=== PATIENT | female | born 1930 | race Caucasian/White ===

== ENCOUNTER 2017-04-24 10:12 | Inpatient (IN) | payer MEDICARE ==
[~2017-04-24] VITALS: Ht 152.4 cm; Wt 65.0 kg
[~2017-04-24 10:12] MED LIST: BUME1TAB PO; CALCCHW25 PO; DUONI NEB; HYDR-3533 PO; LEVO25TA36 PO; LOSA50 PO; METO50TA PO
[2017-04-24 10:28] VITALS: BP 162/73; PULSE 69; RESP 17; TEMP 97.5; O2SAT 97
[2017-04-24 12:11] LABS: AUTOMATED NEUTROPHIL # 4.3 TH/MM3 (1.8-7.7); BASOPHIL # 0.1 TH/MM3 (0-0.2); EOSINOPHIL # 0.1 TH/MM3 (0-0.4); EOSINOPHIL % 1.3 % (0.0-4.0); HEMATOCRIT 37.5 % (35.0-46.0); LYMPH % 39.1 % (9.0-44.0); LYMPHOCYTE # 3.4 TH/MM3 (1.0-4.8); MEAN CELL VOLUME 89.7 FL (80.0-100.0); MEAN CORPUSCULAR HGB CONC 34.6 % (32.0-36.0); MEAN PLATELET VOLUME 9.3 FL (7.0-11.0); MONO % 9.2 % (0.0-8.0); MONOCYTE # 0.8 TH/MM3 (0-0.9); NEUT % 49.4 % (16.0-70.0); PLATELET COUNT 177 TH/MM3 (150-450); RED BLOOD COUNT 4.18 MIL/MM3 (4.00-5.30); RED CELL DISTRIBUTION WIDTH 13.9 % (11.6-17.2); WHITE BLOOD COUNT 8.7 TH/MM3 (4.0-11.0)
[2017-04-24] MEDS ORDERED: LEVO25TA4 PO (12:16)
[2017-04-24] MEDS ORDERED: METO50TA PO (12:16)
[2017-04-24 12:57] VITALS: BP 156/67; PULSE 76; RESP 15; O2SAT 99
[2017-04-24 13:01] LABS: ALT (GPT) 15 U/L (10-53)
[2017-04-24 13:04] LABS: BACTERIA, URINE OCC /hpf; BILIRUBIN, URINE NEG (NEG); BLOOD, URINE NEG (NEG); GLUCOSE,URINE NEG (NEG); KETONE, URINE NEG (NEG); NITRITE,URINE NEG (NEG); SQUAMOUS EPITHELIAL CELL URINE <1 /hpf (0-5); URINE COLOR YELLOW (YELLW/STRAW); URINE LEUKOCYTE ESTERASE MOD (NEG); WHITE BLOOD CELL CLUMPS RARE
[2017-04-24 13:05] LABS: ALKALINE PHOSPHATASE 55 U/L (45-117); TOTAL BILIRUBIN ADULT 0.5 MG/DL (0.2-1.0); TOTAL PROTEIN 6.8 GM/DL (6.4-8.2)
[2017-04-24 13:06] LABS: ALBUMIN 3.8 GM/DL (3.4-5.0); AST (GOT) 18 U/L (15-37); BICARBONATE 24.5 MEQ/L (21.0-32.0); BLOOD UREA NITROGEN 19 MG/DL (7-18); CHLORIDE 104 MEQ/L (98-107); CREATININE 0.89 MG/DL (0.50-1.00); GLOMERULAR FILTRATION RATE 60 ML/MIN (>89); GLUCOSE,RANDOM 94 MG/DL (74-106); SODIUM (NA) 138 MEQ/L (136-145)
--- NOTE | 2017-04-24 14:31 | RADRPT ---
EXAM DATE/TIME: 04/24/2017 13:58 [place] COMPARISON: CT BRAIN W/O CONTRAST, April 08, 2015, 11:50. INDICATIONS : Altered mental status. RADIATION DOSE: 35.03 CTDIvol (mGy) MEDICAL HISTORY : Cerebrovascular disease. Dementia. Seizures.Cardiac, Hypertension, COPD. SURGICAL HISTORY : None. ENCOUNTER: Initial ACUITY: 1 day PAIN SCALE: 0/10 LOCATION: cranial TECHNIQUE: Multiple contiguous axial images were obtained of the head. Using automated exposure control and adj ustment of the mA and/or kV according to patient size, radiation dose was kept as low as reasonably a chievable to obtain optimal diagnostic quality images. DICOM format image data is available electro nically for review and comparison. FINDINGS: CEREBRUM: R. diffuse volume loss. Moderate periventricular white matter hypodensities. Ventricles are stable in normal given degree of atrophy. No evidence of midline shift, mass lesion, hemorrhage or acute infa rction. No extra-axial fluid collections are seen. POSTERIOR FOSSA: The cerebellum and brainstem are intact. The 4th ventricle is midline. The cerebellopontine angle i s unremarkable. EXTRACRANIAL: The visualized portion of the orbits is intact. SKULL: The calvaria is intact. No evidence of skull fracture. CONCLUSION: 1. 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 2. No acute intracranial abnormality. Norman Duarte MD on April 24, 2017 at 14:28 Board Certified Radiologist. This report was verified electronically.
--- NOTE | 2017-04-24 15:08 | PD ---
HPI Chief Complaint: Psychiatric Symptoms Time Seen by Provider: 11:58 Travel History International Travel<30 days: No Contact w/Intl Traveler<30days: No Traveled to known affect area: No History of Present Illness HPI Is an 86-year-old woman has had progressive functional difficulties over the past 2 years. Family states that about 4 years ago they had to move then. For the past 2 years she has been completely dependent in her ADLs including toileting feeding and bathing. Over the past year or so she has gotten progressively worse over the past month or so she has had progressive worsening mental status changes, is confused most of the time. Over the past week or so she has become progressively more violent confused and dangerous. She has been sneaking out of the house without close on, was found in the road by neighbors, and has been aggressive and confused when confronted. She spoke with her primary physician's office today, recommend to come to the emergency department for a "psychiatric evaluation". She is currently not on any medications for behavior or dementia. Some recent falls but they do not believe that she is hit her head. No other recent illness or injury. History Past Medical History Narrative Medical Dementia Menopausal: Yes Social History Alcohol Use: Yes (occ) Tobacco Use: No Allergies-Medications (Allergen,Severity, Reaction): Coded Allergies: No Known Allergies (Verified Adverse Reaction, Unknown, 04/24/17) Reported Meds & Prescriptions Reported Meds & Active Scripts Active Reported Levothyroxine (Levothyroxine Sodium) 25 Mcg Tab 25 Mcg PO DAILY Metoprolol Tartrate 50 Mg Tab 50 Mg PO BID Review of Systems ROS Limitations: Clinical Condition Physical Exam Narrative GENERAL: Well-appearing elderly 86-year-old woman, no acute distress. SKIN: Focused skin assessment warm/dry. HEAD: Atraumatic. Normocephalic. EYES: Pupils equal and round. No scleral icterus. No injection or drainage. ENT: No nasal bleeding or discharge. Mucous membranes pink and moist. NECK: Trachea midline. No JVD. CARDIOVASCULAR: Regular rate and rhythm. No murmur appreciated. RESPIRATORY: No accessory muscle use. Clear to auscultation. Breath sounds equal bilaterally. GASTROINTESTINAL: Abdomen soft, non-tender, nondistended. Hepatic and splenic margins not palpable. MUSCULOSKELETAL: No obvious deformities. No clubbing. No cyanosis. No edema. NEUROLOGICAL: Awake and alert. No obvious cranial nerve deficits. Motor grossly within normal limits. Normal speech. PSYCHIATRIC: Pleasantly confused. Unable to answer most questions. Data Data Last Documented VS Vital Signs Date Time Temp Pulse Resp B/P (MAP) Pulse Ox O2 Delivery O2 Flow Rate FiO2 04/24/17 12:57 76 15 156/67 (96) 99 04/24/17 10:28 97.5 Orders Orders Complete Blood Count With Diff (04/24/17 11:09) Comprehensive Metabolic Panel (04/24/17 11:09) Urinalysis - C+S If Indicated (04/24/17 11:09) Psych Screen (04/24/17 11:09) Drug Screen, Random Urine (04/24/17 11:09) Cath For Specimen (04/24/17 12:14) Ct Brain W/O Iv Contrast(Rout) (04/24/17 ) Urine Culture (04/24/17 12:34) Labs Laboratory Tests Test 04/24/17 11:23 04/24/17 12:34 White Blood Count 8.7 TH/MM3 Red Blood Count 4.18 MIL/MM3 Hemoglobin 13.0 GM/DL Hematocrit 37.5 % Mean Corpuscular Volume 89.7 FL Mean Corpuscular Hemoglobin 31.0 PG Mean Corpuscular Hemoglobin Concent 34.6 % Red Cell Distribution Width 13.9 % Platelet Count 177 TH/MM3 Mean Platelet Volume 9.3 FL Neutrophils (%) (Auto) 49.4 % Lymphocytes (%) (Auto) 39.1 % Monocytes (%) (Auto) 9.2 % Eosinophils (%) (Auto) 1.3 % Basophils (%) (Auto) 1.0 % Neutrophils # (Auto) 4.3 TH/MM3 Lymphocytes # (Auto) 3.4 TH/MM3 Monocytes # (Auto) 0.8 TH/MM3 Eosinophils # (Auto) 0.1 TH/MM3 Basophils # (Auto) 0.1 TH/MM3 CBC Comment DIFF FINAL Differential Comment Blood Urea Nitrogen 19 MG/DL Creatinine 0.89 MG/DL Random Glucose 94 MG/DL Total Protein 6.8 GM/DL Albumin 3.8 GM/DL Calcium Level 9.0 MG/DL Alkaline Phosphatase 55 U/L Aspartate Amino Transf (AST/SGOT) 18 U/L Alanine Aminotransferase (ALT/SGPT) 15 U/L Total Bilirubin 0.5 MG/DL Sodium Level 138 MEQ/L Potassium Level 3.9 MEQ/L Chloride Level 104 MEQ/L Carbon Dioxide Level 24.5 MEQ/L Anion Gap 10 MEQ/L Estimat Glomerular Filtration Rate 60 ML/MIN Urine Color YELLOW Urine Turbidity CLEAR Urine pH 5.0 Urine Specific [place] 1.022 Urine Protein NEG mg/dL Urine Glucose (UA) NEG mg/dL Urine Ketones NEG mg/dL Urine Occult Blood NEG Urine Nitrite NEG Urine Bilirubin NEG Urine Urobilinogen LESS THAN 2.0 MG/DL Urine Leukocyte Esterase MOD Urine RBC 1 /hpf Urine WBC 5 /hpf Urine WBC Clumps RARE Urine Squamous Epithelial Cells <1 /hpf Urine Bacteria OCC /hpf Microscopic Urinalysis Comment CULTURE INDICATED Urine Opiates Screen NEG Urine Barbiturates Screen NEG Urine Amphetamines Screen NEG Urine Benzodiazepines Screen NEG Urine Cocaine Screen NEG Urine Cannabinoids Screen NEG MDM Medical Decision Making Medical Screen Exam Complete: Yes Emergency Medical Condition: Yes Interpretation(s) LABS: CBC is unremarkable CMP is unremarkable UA is unremarkable Urine drug screen is negative Head CT: Senescent changes with moderate periventricular small vessel ischemic white matter demyelination. No acute intracranial abnormality. Differential Diagnosis Dementia, infection, delirium, other Narrative Course Medical decision making INITIAL pleasant 78-year-old woman presents emergency department with worsening confusion and danger to herself at home. This seems related to progressive worsening dementia. She is not on any medications. She will do at home with her daughter. Sent by her primary physician for psychiatric evaluation. Jorje Delgado MD Apr 24, 2017 15:08
[2017-04-24 18:58] VITALS: RESP 20
[2017-04-24 19:45] VITALS: BP 139/64; PULSE 83; RESP 18; TEMP 97.5
[2017-04-24] MEDS ORDERED: diphenhydrAMINE HCL 50 MG CAP PO PRN (20:45)
[2017-04-24] MEDS ORDERED: ACETAMINOPHEN 325 MG TAB PO PRN (20:45)
[2017-04-24] MEDS ORDERED: diphenhydrAMINE HCL 50 MG CAP - HS PRN PO (20:45)
[2017-04-24] MEDS ORDERED: diphenhydrAMINE HCL 50 MG/ML VIAL - HS PRN IM (20:45)
[2017-04-24] MEDS ORDERED: MAGNESIUM HYDROXIDE SUSP 30 ML CUP PO PRN (20:45)
[2017-04-24] MEDS ORDERED: diphenhydrAMINE HCL 50 MG/ML VIAL IM PRN (20:45)
[2017-04-24] MEDS ORDERED: ALUMINUM/MAGNESIUM/SIMETH 30 ML CUP PO PRN (20:45)
[2017-04-24] MEDS ORDERED: REMOVE OLD NICOTINE PATCH T-DERMAL SCH (21:00)
[2017-04-24] MEDS: METOPROLOL TARTRATE 50 MG TAB PO SCH (21:26)
[2017-04-25 04:42] VITALS: BP 126/58; PULSE 70; RESP 16; TEMP 98; O2SAT 97
[2017-04-25] MEDS: LEVOTHYROXINE SODIUM 25 MCG TAB PO SCH (06:36)
[2017-04-25 07:41] LABS: BICARBONATE 26.3 MEQ/L (21.0-32.0); BLOOD UREA NITROGEN 18 MG/DL (7-18); CALCIUM 9.4 MG/DL (8.5-10.1); CHLORIDE 104 MEQ/L (98-107); CREATININE 0.83 MG/DL (0.50-1.00); GLOMERULAR FILTRATION RATE 65 ML/MIN (>89); GLUCOSE,RANDOM 87 MG/DL (74-106); SODIUM (NA) 140 MEQ/L (136-145)
[2017-04-25 07:42] LABS: CHOLESTEROL 170 MG/DL (120-200); TRIGLYCERIDES 90 MG/DL (42-150)
[2017-04-25 07:45] LABS: CHOLESTEROL/ HDL RATIO 2.33 RATIO; HDL CHOLESTEROL 72.8 MG/DL (40.0-60.0); LDL CHOLESTEROL 79 MG/DL (0-99)
[2017-04-25] MEDS: METOPROLOL TARTRATE 50 MG TAB PO SCH ×2 (08:52→20:48)
[2017-04-25] MEDS ORDERED: NICOTINE 21 MG/24 HR PATCH T-DERMAL SCH (09:00)
[2017-04-25] MEDS ORDERED: ASPI-516 CHEW (09:13)
[2017-04-25] MEDS ORDERED: LOSA25TA PO (09:13)
[2017-04-25] MEDS ORDERED: SYMB160A INH (09:13)
[2017-04-25] MEDS ORDERED: CALC1TAB87 PO (09:13)
--- NOTE | 2017-04-25 09:18 | PD.CONS ---
HPI Service [facility] Consult Requested By Psychiatric team Reason for Consult Assist in medical management of chronic medical conditions including cardiac and thyroid as well as UA results Primary Care Physician Mariah Guillen MD Diagnoses: History of Present Illness This is an 86-year-old female patient with a past medical history which includes anemia with B12 deficiency, DVT, CAD, CHF, COPD, chronic kidney disease stage III, hyperlipidemia, hypertension, hypothyroidism, lumbar spondylosis, lumbar stenosis, memory loss and osteoarthritis of lower extremities. Patient is currently confused and unable to give reliable history therefore information gathered from prior charting and review of outpatient records. It appears that patient has had progressive functional difficulties over the past 2 years and for the past 2 years she has been completely dependent in her ADLs including toileting feeding and bathing. Over the past year or so she has gotten progressively worse over the past month or so she has had progressive worsening mental status changes, is confused most of the time. Over the past week or so she has become progressively more violent confused and dangerous. Patient's PCP recommend family bring patient to the emergency department for a "psychiatric evaluation". She is currently not on any medications for behavior or dementia. Patient does appear confused but offers no specific complaints. Past Family Social History Past Medical History anemia with B12 deficiency, DVT, CAD, CHF, COPD, chronic kidney disease stage III, hyperlipidemia, hypertension, hypothyroidism, lumbar spondylosis, lumbar stenosis, memory loss and osteoarthritis of lower extremities. Past Surgical History coronary artery bypass graft, cataract surgery, colonoscopy, EGD, knee surgery, decompression medial nerve for carpal tunnel Reported Medications Levothyroxine (Levothyroxine Sodium) 25 Mcg Tab 25 Mcg PO DAILY Metoprolol Tartrate 50 Mg Tab 50 Mg PO BID Aspirin 81 mg daily Calcium 600 with vitamin D 1 tablet daily Symbicort nebulizer twice a day Levothyroxine 25 g daily Losartan 25 mg 1 tablet daily Allergies: Coded Allergies: atorvastatin (Verified Allergy, Unknown, 04/24/17) tiotropium (Verified Allergy, Unknown, 04/24/17) Family History Heart disease, depression, thyroid disorder Social History No report of EtOH use or illicit drug use Former smoker unable to tell us when she quit Physical Exam Vital Signs Vital Signs Date Time Temp Pulse Resp B/P (MAP) Pulse Ox O2 Delivery O2 Flow Rate FiO2 04/25/17 04:42 98.0 70 16 126/58 (80) 97 04/24/17 19:45 97.5 83 18 139/64 (89) 04/24/17 19:40 04/24/17 18:58 20 04/24/17 12:57 76 15 156/67 (96) 99 04/24/17 10:28 97.5 69 17 162/73 (102) 97 Physical Exam GENERAL: This is a well-nourished, well-developed patient, confused unable to give medical history SKIN: Generalized thinning of skin HEAD: Atraumatic. Normocephalic. No temporal or scalp tenderness. EYES: Extraocular motions intact. No scleral icterus. No injection or drainage. CARDIOVASCULAR: Regular rate and rhythm RESPIRATORY: Clear to auscultation. Breath sounds equal bilaterally. GASTROINTESTINAL: Abdomen soft, non-tender, nondistended. MUSCULOSKELETAL: Extremities without clubbing, cyanosis, or edema. No joint tenderness, effusion, or edema noted. No calf tenderness. Negative Homans sign bilaterally. NEUROLOGICAL: Patient is awake but confused. Motor and sensory grossly within normal limits. 4-5 out of 5 muscle strength in all muscle groups. Laboratory Laboratory Tests Test 04/24/17 11:23 04/24/17 12:34 04/25/17 07:04 White Blood Count 8.7 Red Blood Count 4.18 Hemoglobin 13.0 Hematocrit 37.5 Mean Corpuscular Volume 89.7 Mean Corpuscular Hemoglobin 31.0 Mean Corpuscular Hemoglobin Concent 34.6 Red Cell Distribution Width 13.9 Platelet Count 177 Mean Platelet Volume 9.3 Neutrophils (%) (Auto) 49.4 Lymphocytes (%) (Auto) 39.1 Monocytes (%) (Auto) 9.2 Eosinophils (%) (Auto) 1.3 Basophils (%) (Auto) 1.0 Neutrophils # (Auto) 4.3 Lymphocytes # (Auto) 3.4 Monocytes # (Auto) 0.8 Eosinophils # (Auto) 0.1 Basophils # (Auto) 0.1 CBC Comment DIFF FINAL Differential Comment Blood Urea Nitrogen 19 18 Creatinine 0.89 0.83 Random Glucose 94 87 Total Protein 6.8 Albumin 3.8 Calcium Level 9.0 9.4 Alkaline Phosphatase 55 Aspartate Amino Transf (AST/SGOT) 18 Alanine Aminotransferase (ALT/SGPT) 15 Total Bilirubin 0.5 Sodium Level 138 140 Potassium Level 3.9 3.8 Chloride Level 104 104 Carbon Dioxide Level 24.5 26.3 Anion Gap 10 10 Estimat Glomerular Filtration Rate 60 65 Urine Color YELLOW Urine Turbidity CLEAR Urine pH 5.0 Urine Specific [place] 1.022 Urine Protein NEG Urine Glucose (UA) NEG Urine Ketones NEG Urine Occult Blood NEG Urine Nitrite NEG Urine Bilirubin NEG Urine Urobilinogen LESS THAN 2.0 Urine Leukocyte Esterase MOD Urine RBC 1 Urine WBC 5 Urine WBC Clumps RARE Urine Squamous Epithelial Cells <1 Urine Bacteria OCC Microscopic Urinalysis Comment CULTURE INDICATED Urine Opiates Screen NEG Urine Barbiturates Screen NEG Urine Amphetamines Screen NEG Urine Benzodiazepines Screen NEG Urine Cocaine Screen NEG Urine Cannabinoids Screen NEG Triglycerides Level 90 Cholesterol Level 170 LDL Cholesterol 79 HDL Cholesterol 72.8 Cholesterol/HDL Ratio 2.33 Date/Time Source Procedure Growth Status 04/24/17 12:34 Urine Random Urine Urine Culture Pending Received Result Diagram: 04/24/17 1123 04/25/17 0704 Imaging Last Impressions Head CT 04/24/17 0000 Signed Impressions: Service Date/Time: Saturday, April 24, 2017 13:58 - CONCLUSION: 1. 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 2. No acute intracranial abnormality. Norman Duarte MD Assessment and Plan Problem List: (1) Confusion ICD Codes: R41.0 - Disorientation, unspecified Plan: It appears that patient had had meoery and functional difficulties worsening over the past two years with a more rapid progression over the last 1 year and worsening over the last 1 month. Then over the past week or so she has become progressively more violent confused and dangerous. This appears to be worsening dementia. - R/O underlining medical causes metabolic check Vit B12, TSH, free T4, Folate, ammonia, RPR - UA reviewed neg protein, neg nitrates, Moderate Leukocyte Esterase, rare WBC clumps, occasional bacteria - urine culture pending - Toxicology neg - CBC and BMP unremarkable - CT head Senescent changes with moderate periventricular small vessel ischemic white matter demyelination. No acute intracranial abnormality (2) Possible urinary tract infection ICD Codes: R39.89 - Other symptoms and signs involving the genitourinary system Plan: - UA reviewed neg protein, neg nitrates, Moderate Leukocyte Esterase, rare WBC clumps, occasional bacteria - urine culture pending (3) Hypertension ICD Codes: I10 - Essential (primary) hypertension Status: Acute Plan: Will continue patient's home losartan 25mg PO daily and metoprolol 25 mg PO daily (4) CHF (congestive heart failure) ICD Codes: I50.9 - Congestive heart failure Status: Acute Plan: Will continue patient's home losartan 25mg PO daily, metoprolol 25 mg PO daily (5) CAD (coronary artery disease) ICD Codes: I25.10 - Atherosclerosis of coronary artery Status: Acute Plan: Will continue patient's home losartan 25mg PO daily, metoprolol 25 mg PO daily and aspirin 81 mg PO daily (6) COPD exacerbation ICD Codes: J44.1 - Chronic obstructive pulmonary disease with (acute) exacerbation Status: Acute Plan: continue patient's home Symbicort Albuterol inhaler as needed for AOB (7) Hypothyroidism ICD Codes: E03.9 - Hypothyroidism, unspecified Status: Acute Plan: Continue patient's home levothyroxine 25 mcg PO daily check TSH and free T4 Assessment and Plan Patient examined. Assessment and plan formulated with Zayra Jason PA-C. I agree with the above. Pt with h/o multiple chronic medical issues, but no acute medical issues. Urine Cx shows NOT growth at 24 hours. Pt voices NO acute medical complaints. Medical team will be available prn. Zayra Jason Apr 25, 2017 09:18 Damian Garcias DO Apr 25, 2017 19:53
[2017-04-25] MEDS ORDERED: ALBUTEROL SULFATE 90 MCG/ACT HFA 8 GM INHALER INH PRN (09:30)
--- NOTE | 2017-04-25 11:48 | HHI.HP ---
Provisional Diagnosis Admission Date Apr 24, 2017 at 17:14 [place]. Dimension other diseases with behavior disturbances, Alzheimer's disease late onset Certification of Person's Competence To Provide Express and Informed Consent I have personally examined Donna Lomas , a person being served at [facility] on, Apr 25, 2017 11:28. Express and informed consent means consent voluntarily given in writing, by a competent person, after sufficient explanation and disclosure of the subject matter involved to enable the person to make a knowing and willful decision without any element of force, fraud, deceit, duress, or other form of constraint or coercion. This person is 18 years of age or older, is not now known to be incompetent to consent to treatment with a guardian advocate, and does not have a health care surrogate or proxy currently making medical treatment decisions. I have found this person to be one of the following: [] Competent to provide express and informed consent, as defined above, for voluntary admission to this facility and is competent to provide express and informed consent for treatment. He/she has the consistent capacity to make well reasoned, willful, and knowing decisions concerning his or her medical or mental health treatment. The person fully and consistently understands the purpose of the admission for examination/placement and is fully capable of personally exercising all rights assured under [place]xxx] Incompetent to provide express and informed consent to voluntary admission , and this is incompetent to provide express and informed consent to treatment. The person must be transferred to involuntary status and a petition for a guardian advocate filed with the Circuit Court. [] Refusing to provide express and informed consent to voluntary admission but is competent to provide express and informed consent for treatment. The person must be discharged or transferred to involuntary status. Form shall be completed within 24 hours of a person's arrival at the receiving facility and filed in the clinical record of each person: 1. Admitted on a voluntary basis 2. Permitted to provide express and informed consent to his/her own treatment 3. Allowed to transfer from involuntary to voluntary status 4. Prior to permitting a person to consent to his or her own treatment after having been previously found incompetent to consent to treatment. History of Present Illness Capacity: Lacks Capacity Psych Chief Complaint: patient with dementia with increased aggressiveness towards family HPI She is an 86-year-old white female who comes here under Carias act signed by Dr. Pickard they'll [facility] emergency department dated 04/24/17 at 1604 p.m. that document reviewed basically stating patient lacks alertness unsafe at home wanders out of house. Patient seen screened in ED urine toxicology negative. At the present time patient sitting quietly in day room. She is an alert elderly female who appears her stated age. She is calm pleasant with us is diffusely confused to date time location and situation. She gets a little bit irritable when questioned into much detail related to her living situation and with whom she lives. She denies ever seeing a psychiatrist in the past. She denies suicidality homicidality voices or visions. She states she rarely ever drinks. And has never used marijuana. At the present time patient meets criteria for involuntary psychiatric hospitalization under the Carias act I'll do first opinion request second opinion. Therefore she does not have capacity thus will ask for healthcare surrogate and guardian advocate we will have hospitalist consult will also have PT and OT consult will us. We need to meet with patient's family to determine placement issues. We do need for further observe patient to monitor behaviors into this evening Review of Systems ROS Limitations: Altered Mental Status Past Psych History Psychological trauma history Patient denies Violence risk - others (6 mos) Patient is been aggressive towards family members Violence risk - self (6 mos) Patient denies Substance Abuse History Drugs/Alcohol past 12 months Patient denies Past Family Social History Coded Allergies: atorvastatin (Verified Allergy, Unknown, 04/24/17) tiotropium (Verified Allergy, Unknown, 04/24/17) Reported Medications Calcium Carbonate-Cholecalciferol (Calcium 600 with Vitamin D) 600-400 mg-Unit Tab, 1 TAB PO DAILY for Calcium Supplement, TAB 0 Refills 04/25/17 Aspirin (Aspirin) 81 Mg Chew, 81 MG CHEW DAILY, TAB 0 Refills 04/25/17 Budesonide-Formoterol Inh (Symbicort Inh) 160-4.5 Mcg/Act Aero, 1 PUFF INH Q12HR , #1 INHALER 0 Refills 04/25/17 Losartan (Losartan) 25 Mg Tab, 25 MG PO DAILY for Blood Pressure Management, # 30 TAB 0 Refills 04/25/17 Levothyroxine (Levothyroxine) 25 Mcg Tab, 25 MCG PO DAILY for Thyroid, #30 TAB 0 Refills 04/24/17 Metoprolol Tartrate (Metoprolol Tartrate) 50 Mg Tab, 25 MG PO BID, #60 TAB 0 Refills 04/24/17 Current Medications Medications (Trade) Dose Ordered Sig/Octavia Route Start Time Stop Time Status Last Admin (Atarax) 50 mg Q6H PRN PO 04/24/17 20:45 (Benadryl) 50 mg Q6H PRN PO 04/24/17 20:45 (Benadryl Inj) 50 mg Q6H PRN IM 04/24/17 20:45 (Benadryl) 50 mg HS PRN PO 04/24/17 20:45 (Benadryl Inj) 50 mg HS PRN IM 04/24/17 20:45 (Tylenol) 650 mg Q4H PRN PO 04/24/17 20:45 (Milk Of Magnesia Liq) 30 ml DAILY PRN PO 04/24/17 20:45 (Mag-Al Plus Susp Liq) 30 ml Q6H PRN PO 04/24/17 20:45 (Habitrol 21 Mg Patch.24 Hr) 1 patch DAILY T-DERMAL 04/25/17 09:00 Miscellaneous Information 1 HS T-DERMAL 04/24/17 21:00 (Synthroid) 25 mcg DAILY@0600 PO 04/25/17 06:00 04/25/17 06:36 (Aspirin Chew) 81 mg DAILY CHEW 04/26/17 09:00 (Symbicort 160-4.5 Mcg Inh) 1 puff Q12HR INH 04/25/17 21:00 (Cozaar) 25 mg DAILY PO 04/26/17 09:00 (Lopressor) 25 mg BID PO 04/25/17 21:00 (Proair Hfa Inh) 2 puff Q4H PRN INH 04/25/17 09:30 Family Psych History Patient denies Social History Patient confused about living situation Patient's Strengths (min. 2) Patient verbal able to access healthcare Physical Exam Patient medically cleared through he see exam reviewed and agreed with. Patient sitting quietly in Karie chair in day room she is in no acute distress, she is in no respiratory distress, no complaints with abdominal pain patient sitting in Karie chair unable to determine gait though she moves upper extremities without difficulty Vital Signs Vital Signs Date Time Temp Pulse Resp B/P (MAP) Pulse Ox O2 Delivery O2 Flow Rate FiO2 04/25/17 04:42 98.0 70 16 126/58 (80) 97 Lab Results Test 04/24/17 12:34 04/25/17 07:04 04/25/17 11:07 04/25/17 11:09 Urine Color YELLOW Urine Turbidity CLEAR Urine pH 5.0 Urine Specific [place] 1.022 Urine Protein NEG mg/dL Urine Glucose (UA) NEG mg/dL Urine Ketones NEG mg/dL Urine Occult Blood NEG Urine Nitrite NEG Urine Bilirubin NEG Urine Urobilinogen LESS THAN 2.0 MG/DL Urine Leukocyte Esterase MOD Urine RBC 1 /hpf Urine WBC 5 /hpf Urine WBC Clumps RARE Urine Squamous Epithelial Cells <1 /hpf Urine Bacteria OCC /hpf Microscopic Urinalysis Comment CULTURE INDICATED Urine Opiates Screen NEG Urine Barbiturates Screen NEG Urine Amphetamines Screen NEG Urine Benzodiazepines Screen NEG Urine Cocaine Screen NEG Urine Cannabinoids Screen NEG Blood Urea Nitrogen 18 MG/DL Creatinine 0.83 MG/DL Random Glucose 87 MG/DL Calcium Level 9.4 MG/DL Sodium Level 140 MEQ/L Potassium Level 3.8 MEQ/L Chloride Level 104 MEQ/L Carbon Dioxide Level 26.3 MEQ/L Anion Gap 10 MEQ/L Estimat Glomerular Filtration Rate 65 ML/MIN Triglycerides Level 90 MG/DL Cholesterol Level 170 MG/DL LDL Cholesterol 79 MG/DL HDL Cholesterol 72.8 MG/DL Cholesterol/HDL Ratio 2.33 RATIO Date/Time Source Procedure Growth Status 04/24/17 12:34 Urine Random Urine Urine Culture Pending Received Mental Status Examination Appearance: Appropriate (for 86-year-old) Consciousness: Alert Orientation: Person Motor Activity: Other (patient seen in Karie chair unable to ascertain date) Speech: Hesitant Language: Adequate Fund of Knowledge: Inadequate Attention and Concentration: Easily Distracted Memory: Impaired Mood: Other (euthymic to mildly dysphoric) Affect: Other (decreased range and intensity) Thought Process & Associations: Disorganized Thought Content: Other (somewhat disorganized) Hallucination Type: None Delusion Type: None Suicidal Ideation: No Suicidal Plan: No Suicidal Intention: No Homicidal Ideation: No Homicidal Plan: No Homicidal Intention: No Insight: Poor Judgment: Poor Assessment & Plan Problem List: (1) DEMENTIA IN OTH DISEASES CLASSD ELSWHR W BEHAVIORAL DISTURB ICD Codes: F02.81 - DEMENTIA IN OTH DISEASES CLASSD ELSWHR W BEHAVIORAL DISTURB (2) ALZHEIMER'S DISEASE WITH LATE ONSET ICD Codes: G30.1 - ALZHEIMER'S DISEASE WITH LATE ONSET Assessment & Plan Estimated LOS: 7 days this time patient meets Carias criteria for involuntary hospitalization will do first opinion request second opinion, feel patient does not have capacity thus I'll ask for healthcare surrogate and guardian advocate. We will of hospitalist consult with us, PT and OT consultation. We will attempt to meet this patient's family of the next few days to discuss diagnosis treatment medication and possible placement issues Discharge Planning To be determined Request HC Surrog/Guard Advoc?: Yes Santi Zaragoza MD Apr 25, 2017 11:48
[2017-04-25 14:13] LABS: FOLATE 16.5 NG/ML (3.1-17.5); FREE T4 0.91 NG/DL (0.76-1.46)
[2017-04-25 16:01] LABS: HEMOGLOBIN A1C 5.1 % (4.3-6.0)
[2017-04-25 18:03] VITALS: BP 130/60; PULSE 70; RESP 17; TEMP 98.2; O2SAT 93
[2017-04-25] MEDS: BUDESONIDE-FORMOTEROL 160/4.5 MCG INHALER INH SCH (20:48)
[2017-04-26] MEDS: LEVOTHYROXINE SODIUM 25 MCG TAB PO SCH (05:54)
[2017-04-26] MEDS: BUDESONIDE-FORMOTEROL 160/4.5 MCG INHALER INH SCH ×2 (08:48→21:12)
[2017-04-26] MEDS: ASPIRIN 81 MG CHEW TAB CHEW SCH (08:48)
[2017-04-26] MEDS: LOSARTAN 25 MG TAB PO SCH (08:49)
[2017-04-26] MEDS: METOPROLOL TARTRATE 50 MG TAB PO SCH ×2 (08:49→21:00)
[2017-04-26] MEDS ORDERED: LEVOTHYROXINE SODIUM 25 MCG TAB PO SCH (09:00)
[2017-04-26 09:09] VITALS: BP 113/55; PULSE 61; RESP 15; TEMP 97.6; O2SAT 98
--- NOTE | 2017-04-26 11:10 | PD.PSY.CON ---
Provisional Diagnosis Admission Date Apr 24, 2017 at 17:14 [place] I. Dementia diseases with behavior disturbances, Alzheimer's disease late onset History of Present Illness Service Psychiatry Consult Requested By Dr. Zaragoza Reason for Consult Second opinion Primary Care Physician Mariah Guillen MD HPI She is an 86-year-old white female who comes here under Carias act signed by Dr. Pickard they'll [facility] emergency department dated 04/24/17 at 1604 p.m. that document reviewed basically stating patient lacks alertness unsafe at home wanders out of house. Patient seen screened in ED urine toxicology negative. At the present time patient sitting quietly in day room. She is an alert elderly female who appears her stated age. She is calm pleasant with us is diffusely confused to date time location and situation. She gets a little bit irritable when questioned into much detail related to her living situation and with whom she lives. She denies ever seeing a psychiatrist in the past. She denies suicidality homicidality voices or visions. She states she rarely ever drinks. And has never used marijuana. At the present time patient meets criteria for involuntary psychiatric hospitalization under the Carias act I'll do first opinion request second opinion. Therefore she does not have capacity thus will ask for healthcare surrogate and guardian advocate we will have hospitalist consult will also have PT and OT consult will us. We need to meet with patient's family to determine placement issues. We do need for further observe patient to monitor behaviors into this evening Patient was seen today for second opinion. She was very confused, she does not know the reason she is in the hospital. She reports good mood, denies suicidal ideation, she denies visual and auditory hallucinations. She does report feeling very tired, fatigued. She does not know where she is, does not know the date. She is irritable, but no agitated, no aggressive. Review of Systems Constitutional: DENIES: Diaphoretic episodes, Fatigue, Fever, Weight gain, Weight loss, Chills, Dizziness, Change in appetite, Night Sweats Endocrine: DENIES: Abnorml menstrual pattern, Heat/cold intolerance, Polydipsia , Polyuria, Polyphagia Eyes: DENIES: Blurred vision, Diplopia, Eye inflammation, Eye pain, Vision loss , Photosensitivity, Double Vision Ears, nose, mouth, throat: DENIES: Tinnitus, Hearing loss, Vertigo, Nasal discharge, Oral lesions, Throat pain, Hoarseness, Ear Pain, Running Nose, Epistaxis, Sinus Pain, Toothache, Odynophagia Respiratory: DENIES: Apneas, Cough, Snoring, Wheezing, Hemoptysis, Sputum production, Shortness of breath Cardiovascular: DENIES: Chest pain, Palpitations, Syncope, Dyspnea on Exertion , PND, Lower Extremity Edema, Orthopnea, Claudication Gastrointestinal: DENIES: Abdominal pain, Black stools, Bloody stools, Constipation, Diarrhea, Nausea, Vomiting, Difficulty Swallowing, Anorexia Genitourinary: DENIES: Abnormal vaginal bleeding, Dysmenorrhea, Dyspareunia, Sexual dysfunction, Urinary frequency, Urinary incontinence, Urgency, Hematuria , Dysuria, Nocturia, Vaginal discharge Musculoskeletal: DENIES: Joint pain, Muscle aches, Stiffness, Joint Swelling, Back pain, Neck pain Integumentary: DENIES: Abnormal pigmentation, Pruritus, Rash, Nail changes, Breast masses, Breast skin changes, Nipple discharge Hematologic/lymphatic: DENIES: Bruising, Lymphadenopathy Immunologic/allergic: DENIES: Eczema, Urticaria Neurologic: DENIES: Abnormal gait, Headache, Localized weakness, Paresthesias, Seizures, Speech Problems, Tremor, Poor Balance Psychiatric: DENIES: Anxiety, Confusion, Mood changes, Depression, Hallucinations, Agitation, Suicidal Ideation, Homicidal Ideation, Delusions Past Family Social History Coded Allergies: atorvastatin (Verified Allergy, Unknown, 04/24/17) tiotropium (Verified Allergy, Unknown, 04/24/17) Reported Medications Calcium Carbonate-Cholecalciferol (Calcium 600 with Vitamin D) 600-400 mg-Unit Tab, 1 TAB PO DAILY for Calcium Supplement, TAB 0 Refills 04/25/17 Aspirin (Aspirin) 81 Mg Chew, 81 MG CHEW DAILY, TAB 0 Refills 04/25/17 Budesonide-Formoterol Inh (Symbicort Inh) 160-4.5 Mcg/Act Aero, 1 PUFF INH Q12HR , #1 INHALER 0 Refills 04/25/17 Losartan (Losartan) 25 Mg Tab, 25 MG PO DAILY for Blood Pressure Management, # 30 TAB 0 Refills 04/25/17 Levothyroxine (Levothyroxine) 25 Mcg Tab, 25 MCG PO DAILY for Thyroid, #30 TAB 0 Refills 04/24/17 Metoprolol Tartrate (Metoprolol Tartrate) 50 Mg Tab, 25 MG PO BID, #60 TAB 0 Refills 04/24/17 Current Medications Medications (Trade) Dose Ordered Sig/Octavia Route Start Time Stop Time Status Last Admin (Atarax) 50 mg Q6H PRN PO 04/24/17 20:45 (Benadryl) 50 mg HS PRN PO 04/24/17 20:45 (Tylenol) 650 mg Q4H PRN PO 04/24/17 20:45 04/26/17 03:36 (Milk Of Magnesia Liq) 30 ml DAILY PRN PO 04/24/17 20:45 (Mag-Al Plus Susp Liq) 30 ml Q6H PRN PO 04/24/17 20:45 (Synthroid) 25 mcg DAILY@0600 PO 04/25/17 06:00 04/26/17 05:54 (Aspirin Chew) 81 mg DAILY CHEW 04/26/17 09:00 04/26/17 08:48 (Symbicort 160-4.5 Mcg Inh) 1 puff Q12HR INH 04/25/17 21:00 04/26/17 08:48 (Cozaar) 25 mg DAILY PO 04/26/17 09:00 04/26/17 08:49 (Lopressor) 25 mg BID PO 04/25/17 21:00 04/26/17 08:49 (Proair Hfa Inh) 2 puff Q4H PRN INH 04/25/17 09:30 Patient's Strengths (min. 2) Patient verbal able to access healthcare Physical Exam Vital Signs Vital Signs Date Time Temp Pulse Resp B/P (MAP) Pulse Ox O2 Delivery O2 Flow Rate FiO2 04/26/17 09:09 97.6 61 15 113/55 (74) 98 I/O 04/26/17 04/26/17 04/27/17 08:00 16:00 00:00 Intake Total 120 ml 480 ml Balance 120 ml 480 ml Lab Results Test 04/25/17 11:07 04/25/17 11:09 04/25/17 13:13 Ammonia 20 MCMOL/L Rapid Plasma Reagin NON-REACTIVE Vitamin B12 Level 414 PG/ML Folate 16.5 NG/ML Free Thyroxine 0.91 NG/DL Thyroid Stimulating Hormone 3rd Gen 4.390 uIU/ML Date/Time Source Procedure Growth Status 04/24/17 12:34 Urine Random Urine Urine Culture - Final NO GROWTH IN 48 HOURS. Complete Mental Status Examination Appearance: Appropriate (for 86-year-old) Consciousness: Alert Orientation: Person Motor Activity: Other (patient seen in Karie chair unable to ascertain date) Speech: Hesitant Language: Adequate Fund of Knowledge: Inadequate Attention and Concentration: Easily Distracted Memory: Impaired Mood: Other (euthymic to mildly dysphoric) Affect: Other (decreased range and intensity) Thought Process & Associations: Disorganized Thought Content: Other (somewhat disorganized) Hallucination Type: None Delusion Type: None Suicidal Ideation: No Suicidal Plan: No Suicidal Intention: No Homicidal Ideation: No Homicidal Plan: No Homicidal Intention: No Insight: Poor Judgment: Poor Assessment & Plan Problem List: (1) DEMENTIA IN OTH DISEASES CLASSD ELSWHR W BEHAVIORAL DISTURB ICD Codes: F02.81 - DEMENTIA IN OTH DISEASES CLASSD ELSWHR W BEHAVIORAL DISTURB Assessment & Plan: I have seen and examined this patient, reviewed documentation, I agree and concur with Dr. Zaragoza's assessment and plan. (2) ALZHEIMER'S DISEASE WITH LATE ONSET ICD Codes: G30.1 - ALZHEIMER'S DISEASE WITH LATE ONSET Assessment & Plan Estimated LOS: days Request HC Surrog/Guard Advoc?: Yes Fan Campos MD Apr 26, 2017 11:10
--- NOTE | 2017-04-26 11:16 | HHI.PYPN ---
Subjective Chief Complaint: patient with dementia with increased aggressiveness towards family Remarks Patient seen in day room with nurse con [facility] counselor Nat patient is alert pleasant though diffusely confused all 4 spheres she has been no significant behavioral problems, will needs significant assistance with ADLs and other activities of the day. Review of Systems Except as stated in HPI: all other systems reviewed are Neg Mental Status Examination Appearance: Appropriate (for 86-year-old) Consciousness: Alert Orientation: Person Motor Activity: Other (patient seen in Karie chair unable to ascertain date) Speech: Hesitant Language: Adequate Fund of Knowledge: Inadequate Attention and Concentration: Easily Distracted Memory: Impaired Mood: Other (euthymic to mildly dysphoric) Affect: Other (decreased range and intensity) Thought Process & Associations: Disorganized Thought Content: Other (somewhat disorganized) Hallucination Type: None Delusion Type: None Suicidal Ideation: No Suicidal Plan: No Suicidal Intention: No Homicidal Ideation: No Homicidal Plan: No Homicidal Intention: No Insight: Poor Judgment: Poor Results Labs Test 04/25/17 13:13 Vitamin B12 Level 414 PG/ML Folate 16.5 NG/ML Free Thyroxine 0.91 NG/DL Thyroid Stimulating Hormone 3rd Gen 4.390 uIU/ML Date/Time Source Procedure Growth Status 04/24/17 12:34 Urine Random Urine Urine Culture - Final NO GROWTH IN 48 HOURS. Complete Vitals/IOs Vital Signs Date Time Temp Pulse Resp B/P (MAP) Pulse Ox O2 Delivery O2 Flow Rate FiO2 04/26/17 09:09 97.6 61 15 113/55 (74) 98 Intake and Output 04/26/17 04/26/17 04/27/17 08:00 16:00 00:00 Intake Total 120 ml 480 ml Balance 120 ml 480 ml Assessment & Plan Problem List: (1) DEMENTIA IN OTH DISEASES CLASSD ELSWHR W BEHAVIORAL DISTURB ICD Codes: F02.81 - DEMENTIA IN OTH DISEASES CLASSD ELSWHR W BEHAVIORAL DISTURB (2) ALZHEIMER'S DISEASE WITH LATE ONSET ICD Codes: G30.1 - ALZHEIMER'S DISEASE WITH LATE ONSET Assessment & Plan Estimated LOS: days patient continues calm no behavior problems no confused all 4 spheres. Compliant medications. Justification for Cont. Inpt. At this time patient will decompensate the placed in the lower level of care Discharge Planning Placement may become problematic Request HC Surrog/Guard Advoc?: Yes Santi Zaragoza MD Apr 26, 2017 11:16
[2017-04-26 18:04] VITALS: BP 108/54; PULSE 71; RESP 16; TEMP 97.9; O2SAT 97
[2017-04-27] MEDS: LEVOTHYROXINE SODIUM 25 MCG TAB PO SCH (06:09)
[2017-04-27 07:11] VITALS: BP 129/61; PULSE 65; RESP 17; TEMP 97.7; O2SAT 98
[2017-04-27] MEDS: ASPIRIN 81 MG CHEW TAB CHEW SCH (08:33)
[2017-04-27] MEDS: METOPROLOL TARTRATE 50 MG TAB PO SCH ×2 (08:33→21:00)
[2017-04-27] MEDS: LOSARTAN 25 MG TAB PO SCH (08:33)
[2017-04-27] MEDS: BUDESONIDE-FORMOTEROL 160/4.5 MCG INHALER INH SCH ×2 (08:34→21:04)
--- NOTE | 2017-04-27 17:39 | HHI.PYPN ---
Subjective Chief Complaint: patient with dementia with increased aggressiveness towards family Remarks Patient was seen and case discussed with nursing. Patient is alert and oriented 1. Pleasantly confused. Thought processes disorganized. She has not been agitated or aggressive. Social with others on the unit. Tolerating her medications well Mental Status Examination Appearance: Appropriate (for 86-year-old) Consciousness: Alert Orientation: Person Motor Activity: Other (patient seen in Karie chair unable to ascertain date) Speech: Hesitant Language: Adequate Fund of Knowledge: Inadequate Attention and Concentration: Easily Distracted Memory: Impaired Mood: Other (euthymic to mildly dysphoric) Affect: Other (decreased range and intensity) Thought Process & Associations: Disorganized Thought Content: Other (somewhat disorganized) Hallucination Type: None Delusion Type: None Suicidal Ideation: No Suicidal Plan: No Suicidal Intention: No Homicidal Ideation: No Homicidal Plan: No Homicidal Intention: No Insight: Poor Judgment: Poor Results Labs Date/Time Source Procedure Growth Status 04/24/17 12:34 Urine Random Urine Urine Culture - Final NO GROWTH IN 48 HOURS. Complete Vitals/IOs Vital Signs Date Time Temp Pulse Resp B/P (MAP) Pulse Ox O2 Delivery O2 Flow Rate FiO2 04/27/17 07:11 97.7 65 17 129/61 (83) 98 Intake and Output 04/27/17 04/27/17 04/28/17 08:00 16:00 00:00 Intake Total 480 ml Balance 480 ml Assessment & Plan Problem List: (1) DEMENTIA IN OTH DISEASES CLASSD ELSWHR W BEHAVIORAL DISTURB ICD Codes: F02.81 - DEMENTIA IN OTH DISEASES CLASSD ELSWHR W BEHAVIORAL DISTURB (2) ALZHEIMER'S DISEASE WITH LATE ONSET ICD Codes: G30.1 - ALZHEIMER'S DISEASE WITH LATE ONSET Assessment & Plan Continue current treatment plan Justification for Cont. Inpt. Patient would decompensate in a less restrictive setting Request HC Surrog/Guard Advoc?: Yes Ashvin Claros DO Apr 27, 2017 17:39
[2017-04-27 18:10] VITALS: BP 112/55; PULSE 88; RESP 16; TEMP 98; O2SAT 98
[2017-04-27 21:00] VITALS: BP 115/58; PULSE 83; RESP 24; O2SAT 96
[2017-04-27] MEDS: hydrOXYzine HCL 50 MG TAB PO PRN (22:38)
[2017-04-28 05:30] VITALS: BP 196/92; PULSE 86; RESP 18; TEMP 97.1
[2017-04-28] MEDS: LEVOTHYROXINE SODIUM 25 MCG TAB PO SCH (05:47)
[2017-04-28] MEDS: LOSARTAN 25 MG TAB PO SCH (08:22)
[2017-04-28] MEDS: BUDESONIDE-FORMOTEROL 160/4.5 MCG INHALER INH SCH ×2 (08:22→20:56)
[2017-04-28] MEDS: METOPROLOL TARTRATE 50 MG TAB PO SCH ×2 (08:22→20:57)
[2017-04-28] MEDS: ASPIRIN 81 MG CHEW TAB CHEW SCH (08:22)
--- NOTE | 2017-04-28 12:53 | HHI.PYPN ---
Subjective Chief Complaint: patient with dementia with increased aggressiveness towards family Remarks Patient was seen and case discussed with nursing. Patient is alert and oriented 1. Patient thinks that she is in [place]. Attempts at confabulating during the interview. Per nursing she was seeing squirrels last night and felt that the plate was talking to her. No agitation, behaving well on the unit Mental Status Examination Appearance: Appropriate (for 86-year-old) Consciousness: Alert Orientation: Person Motor Activity: Other (patient seen in Karie chair unable to ascertain date) Speech: Hesitant Language: Adequate Fund of Knowledge: Inadequate Attention and Concentration: Easily Distracted Memory: Impaired Mood: Other (euthymic to mildly dysphoric) Affect: Other (decreased range and intensity) Thought Process & Associations: Disorganized Thought Content: Other (somewhat disorganized) Hallucination Type: None Delusion Type: None Suicidal Ideation: No Suicidal Plan: No Suicidal Intention: No Homicidal Ideation: No Homicidal Plan: No Homicidal Intention: No Insight: Poor Judgment: Poor Results Labs Date/Time Source Procedure Growth Status 04/24/17 12:34 Urine Random Urine Urine Culture - Final NO GROWTH IN 48 HOURS. Complete Vitals/IOs Vital Signs Date Time Temp Pulse Resp B/P (MAP) Pulse Ox O2 Delivery O2 Flow Rate FiO2 04/28/17 05:30 97.1 86 18 196/92 (126) 04/27/17 21:00 96 Intake and Output 04/28/17 04/28/17 04/29/17 08:00 16:00 00:00 Intake Total 240 ml Balance 240 ml Assessment & Plan Problem List: (1) DEMENTIA IN OTH DISEASES CLASSD ELSWHR W BEHAVIORAL DISTURB ICD Codes: F02.81 - DEMENTIA IN OTH DISEASES CLASSD ELSWHR W BEHAVIORAL DISTURB (2) ALZHEIMER'S DISEASE WITH LATE ONSET ICD Codes: G30.1 - ALZHEIMER'S DISEASE WITH LATE ONSET Assessment & Plan Continue current treatment plan Justification for Cont. Inpt. Patient would decompensate in a less restrictive setting Request HC Surrog/Guard Advoc?: Yes Ashvin Claros DO Apr 28, 2017 12:53
[2017-04-28 20:45] VITALS: BP 121/66; PULSE 92; RESP 22; O2SAT 96
[2017-04-29 05:30] VITALS: BP 160/70; PULSE 57; RESP 17; TEMP 97.4; O2SAT 98
[2017-04-29] MEDS: LEVOTHYROXINE SODIUM 25 MCG TAB PO SCH (05:49)
[2017-04-29] MEDS: LOSARTAN 25 MG TAB PO SCH (08:01)
[2017-04-29] MEDS: METOPROLOL TARTRATE 50 MG TAB PO SCH ×3 (08:01→20:44)
[2017-04-29] MEDS: ASPIRIN 81 MG CHEW TAB CHEW SCH (08:01)
[2017-04-29] MEDS: BUDESONIDE-FORMOTEROL 160/4.5 MCG INHALER INH SCH ×2 (08:01→20:41)
--- NOTE | 2017-04-29 16:18 | HHI.PYPN ---
Subjective Chief Complaint: patient with dementia with increased aggressiveness towards family Remarks Patient seen in day room with nurse con hale, chart review, patient compliant medications. Discussed patient with nurse. Patient continues pleasant calm diffusely confused all 4 spheres. However staff states patient gets somewhat more rowdy and feisty in the evening and her sleep patterns are not good right now. I did call patient's daughter Jewell sears at [phone] we discussed her mother. And medications she gave me verbal permission to offer her daughter Seroquel Atarax and Benadryl. She also confirm the fact that she and her mother and her family wished that the patient will be a no code I will also do Review of Systems Except as stated in HPI: all other systems reviewed are Neg Mental Status Examination Appearance: Appropriate (for 86-year-old) Consciousness: Alert Orientation: Person Motor Activity: Other (patient seen in Karie chair unable to ascertain date) Speech: Hesitant Language: Adequate Fund of Knowledge: Inadequate Attention and Concentration: Easily Distracted Memory: Impaired Mood: Other (euthymic to mildly dysphoric) Affect: Other (decreased range and intensity) Thought Process & Associations: Disorganized Thought Content: Other (somewhat disorganized) Hallucination Type: None Delusion Type: None Suicidal Ideation: No Suicidal Plan: No Suicidal Intention: No Homicidal Ideation: No Homicidal Plan: No Homicidal Intention: No Insight: Poor Judgment: Poor Results Labs Date/Time Source Procedure Growth Status 04/24/17 12:34 Urine Random Urine Urine Culture - Final NO GROWTH IN 48 HOURS. Complete Vitals/IOs Vital Signs Date Time Temp Pulse Resp B/P (MAP) Pulse Ox O2 Delivery O2 Flow Rate FiO2 04/29/17 05:30 97.4 57 17 160/70 (100) 98 Intake and Output 04/29/17 04/29/17 04/30/17 08:00 16:00 00:00 Intake Total 240 ml Balance 240 ml Assessment & Plan Problem List: (1) DEMENTIA IN OTH DISEASES CLASSD ELSWHR W BEHAVIORAL DISTURB ICD Codes: F02.81 - DEMENTIA IN OTH DISEASES CLASSD ELSWHR W BEHAVIORAL DISTURB (2) ALZHEIMER'S DISEASE WITH LATE ONSET ICD Codes: G30.1 - ALZHEIMER'S DISEASE WITH LATE ONSET Assessment & Plan Estimated LOS: days patient remains diffusely confused disoriented but overall pleasant. There is some sundowning behavior also noted in her sleep is not been very efficient. I did discuss this with patient's daughter will add medications as mentioned above we'll start Seroquel at 25 mg about 4 PM and at at bedtime. Patient also will be admitted DNR Justification for Cont. Inpt. At this time patient decompensated placed in the lower level of care Discharge Planning To be determined Request HC Surrog/Guard Advoc?: Yes Santi Zaragoza MD Apr 29, 2017 16:18
[2017-04-29 17:32] VITALS: BP 110/55; PULSE 81; RESP 16; TEMP 98.1; O2SAT 96
[2017-04-29] MEDS: QUEtiapine FUMARATE 25 MG TAB PO SCH (20:40)
[2017-04-29 20:44] VITALS: BP 103/57; PULSE 67
[2017-04-30 06:21] VITALS: BP 163/67; PULSE 63; RESP 17
[2017-04-30] MEDS: LEVOTHYROXINE SODIUM 25 MCG TAB PO SCH (07:05)
[2017-04-30] MEDS: BUDESONIDE-FORMOTEROL 160/4.5 MCG INHALER INH SCH ×2 (09:00→21:18)
[2017-04-30] MEDS: LOSARTAN 25 MG TAB PO SCH (09:00)
[2017-04-30] MEDS: ASPIRIN 81 MG CHEW TAB CHEW SCH (09:00)
--- NOTE | 2017-04-30 10:06 | HHI.PYPN ---
Subjective Chief Complaint: patient with dementia with increased aggressiveness towards family Remarks Patient seen in day room with nurse counselor Nat, chart review, patient compliant medications, patient discussed with nurse. Patient continues calm pleasant with us, pleasantly confused. She states she slept well last night first time in a while. For now continue treatment Review of Systems Except as stated in HPI: all other systems reviewed are Neg Mental Status Examination Appearance: Appropriate (for 86-year-old) Consciousness: Alert Orientation: Person Motor Activity: Other (patient seen in Karie chair unable to ascertain date) Speech: Hesitant Language: Adequate Fund of Knowledge: Inadequate Attention and Concentration: Easily Distracted Memory: Impaired Mood: Other (euthymic to mildly dysphoric) Affect: Other (decreased range and intensity) Thought Process & Associations: Disorganized Thought Content: Other (somewhat disorganized) Hallucination Type: None Delusion Type: None Suicidal Ideation: No Suicidal Plan: No Suicidal Intention: No Homicidal Ideation: No Homicidal Plan: No Homicidal Intention: No Insight: Poor Judgment: Poor Results Labs Date/Time Source Procedure Growth Status 04/24/17 12:34 Urine Random Urine Urine Culture - Final NO GROWTH IN 48 HOURS. Complete Vitals/IOs Vital Signs Date Time Temp Pulse Resp B/P (MAP) Pulse Ox O2 Delivery O2 Flow Rate FiO2 04/30/17 06:21 63 17 163/67 (99) 04/29/17 17:32 98.1 96 Intake and Output 04/30/17 04/30/17 05/01/17 08:00 16:00 00:00 Output Total 1 ml Balance -1 ml Assessment & Plan Problem List: (1) DEMENTIA IN OTH DISEASES CLASSD ELSWHR W BEHAVIORAL DISTURB ICD Codes: F02.81 - DEMENTIA IN OTH DISEASES CLASSD ELSWHR W BEHAVIORAL DISTURB (2) ALZHEIMER'S DISEASE WITH LATE ONSET ICD Codes: G30.1 - ALZHEIMER'S DISEASE WITH LATE ONSET Assessment & Plan Estimated LOS: days patient continues demented confused but no significant behavioral problems at this time. She slept better last night. Justification for Cont. Inpt. At this time patient will decompensate placed on the lower level of care Discharge Planning To be determined Request HC Surrog/Guard Advoc?: Yes Santi Zaragoza MD Apr 30, 2017 10:06
[2017-04-30] MEDS: QUEtiapine FUMARATE 25 MG TAB PO SCH ×2 (16:00→21:18)
[2017-04-30 17:20] VITALS: BP 97/51; PULSE 74; RESP 18; TEMP 97.4; O2SAT 97
[2017-04-30 20:19] VITALS: BP 106/51; PULSE 77
[2017-04-30] MEDS: hydrOXYzine HCL 50 MG TAB PO PRN (20:19)
[2017-04-30] MEDS: METOPROLOL TARTRATE 50 MG TAB PO SCH (20:19)
[2017-05-01] MEDS: LEVOTHYROXINE SODIUM 25 MCG TAB PO SCH (05:57)
[2017-05-01 06:24] VITALS: BP 124/58; PULSE 60; RESP 16; O2SAT 95
[2017-05-01] MEDS: BUDESONIDE-FORMOTEROL 160/4.5 MCG INHALER INH SCH ×2 (09:00→20:11)
[2017-05-01] MEDS: ASPIRIN 81 MG CHEW TAB CHEW SCH (09:08)
[2017-05-01] MEDS: METOPROLOL TARTRATE 50 MG TAB PO SCH ×2 (09:08→20:11)
[2017-05-01] MEDS: LOSARTAN 25 MG TAB PO SCH (09:08)
--- NOTE | 2017-05-01 09:49 | PD.TTN ---
Patient Problems 1. Discharge planning 2. Medication compliance 3. Knowledge deficit 4. Lack of coping skills Progress Toward Goals Provider Present: Dr. Korey Zaragoza Provider Input: 04/29/17 will start on a medication, she is new this week 05/01/17 meds were adjusted and she appears tolerating the meds , will assess today, if well can go to [facility]/facility Nurse(s) Input: 05/01/17 Murali, very confused, med compliant and no behavioral issues Psychiatric Counselors Present: Nat Chow LCSW Psych Therapist Input: 04/29/17 patient is pleasant and cooperative, nitessa who is POA will work on a facility for the patient 05/01/17 no behavioral issues Group Spec/RT/OT/WILLARD Present: MONTSE Tsang Group Spec/RT/OT/WILLARD Input: 04/29/17 is new to Rec therapy 05/01/17 has engaged little on unit but social and pleasant Nat Chow LCSW May 01, 2017 09:49
[2017-05-01] MEDS: QUEtiapine FUMARATE 25 MG TAB PO SCH ×2 (15:39→20:52)
[2017-05-01 17:58] VITALS: BP 127/56; PULSE 66; RESP 16; TEMP 97.6; O2SAT 96
[2017-05-01] MEDS: hydrOXYzine HCL 50 MG TAB PO PRN (20:11)
[2017-05-02] MEDS: LEVOTHYROXINE SODIUM 25 MCG TAB PO SCH (05:34)
[2017-05-02 06:05] VITALS: BP 165/74; PULSE 63; RESP 16; TEMP 96.3; O2SAT 96
[2017-05-02] MEDS: METOPROLOL TARTRATE 50 MG TAB PO SCH ×2 (08:19→20:23)
[2017-05-02] MEDS: ASPIRIN 81 MG CHEW TAB CHEW SCH (08:19)
[2017-05-02] MEDS: LOSARTAN 25 MG TAB PO SCH (08:19)
[2017-05-02] MEDS: BUDESONIDE-FORMOTEROL 160/4.5 MCG INHALER INH SCH ×2 (08:19→20:59)
--- NOTE | 2017-05-02 09:02 | HHI.PYPN ---
Subjective Chief Complaint: patient with dementia with increased aggressiveness towards family Remarks This is a late entry progress note for visit with patient on 05/01/17. Patient seen on unit with nurse, chart reviewed, patient discussed with nurse. Patient remains calm pleasantly confused, no significant behavioral problems. We continue to wait for word from placement about bed date. Until then continue treatment Review of Systems Except as stated in HPI: all other systems reviewed are Neg Mental Status Examination Appearance: Appropriate (for 86-year-old) Consciousness: Alert Orientation: Person Motor Activity: Other (patient seen in Karie chair unable to ascertain date) Speech: Hesitant Language: Adequate Fund of Knowledge: Inadequate Attention and Concentration: Easily Distracted Memory: Impaired Mood: Other (euthymic to mildly dysphoric) Affect: Other (decreased range and intensity) Thought Process & Associations: Disorganized Thought Content: Other (somewhat disorganized) Hallucination Type: None Delusion Type: None Suicidal Ideation: No Suicidal Plan: No Suicidal Intention: No Homicidal Ideation: No Homicidal Plan: No Homicidal Intention: No Insight: Poor Judgment: Poor Results Labs Date/Time Source Procedure Growth Status 04/24/17 12:34 Urine Random Urine Urine Culture - Final NO GROWTH IN 48 HOURS. Complete Vitals/IOs Vital Signs Date Time Temp Pulse Resp B/P (MAP) Pulse Ox O2 Delivery O2 Flow Rate FiO2 05/02/17 06:05 96.3 63 16 165/74 (104) 96 Intake and Output 05/02/17 05/02/17 05/03/17 08:00 16:00 00:00 Intake Total 0 ml Balance 0 ml Assessment & Plan Problem List: (1) DEMENTIA IN OTH DISEASES CLASSD ELSWHR W BEHAVIORAL DISTURB ICD Codes: F02.81 - DEMENTIA IN OTH DISEASES CLASSD ELSWHR W BEHAVIORAL DISTURB (2) ALZHEIMER'S DISEASE WITH LATE ONSET ICD Codes: G30.1 - ALZHEIMER'S DISEASE WITH LATE ONSET Assessment & Plan Estimated LOS: days patient continues demented confused no behavior problems. Continue to await word from bed placement Justification for Cont. Inpt. At this time patient would decompensate if not place an appropriate level of care Discharge Planning Continue to await word from placement Request HC Surrog/Guard Advoc?: Yes Santi Zaragoza MD May 02, 2017 09:02
[2017-05-02] MEDS ORDERED: METO50TA PO (09:11)
[2017-05-02] MEDS ORDERED: LOSA25TA PO (09:11)
[2017-05-02] MEDS ORDERED: SYMB160A INH (09:11)
[2017-05-02] MEDS ORDERED: ASPI-516 CHEW (09:11)
[2017-05-02] MEDS ORDERED: LEVO25TA4 PO (09:11)
[2017-05-02] MEDS ORDERED: SERO25TA PO (09:11)
--- NOTE | 2017-05-02 09:14 | HHI.DS ---
Psychiatry Discharge Summary Inpatient Psychiatric care?: Yes Advance Directive: No Reason Not Provided: Due to Patient Condition Mental Health AdvanceDirective: No Health Care Proxy: No Admission Admission Date Apr 24, 2017 at 17:14 Admission Diagnosis: (1) ALZHEIMER'S DISEASE WITH LATE ONSET ICD Code: G30.1 - ALZHEIMER'S DISEASE WITH LATE ONSET (2) DEMENTIA IN OTH DISEASES CLASSD ELSWHR W BEHAVIORAL DISTURB ICD Code: F02.81 - DEMENTIA IN OTH DISEASES CLASSD ELSWHR W BEHAVIORAL DISTURB Brief History She is an 86-year-old white female who comes here under Carias act signed by Dr. Pickard they'll [facility] emergency department dated 04/24/17 at 1604 p.m. that document reviewed basically stating patient lacks alertness unsafe at home wanders out of house. Patient seen screened in ED urine toxicology negative. At the present time patient sitting quietly in day room. She is an alert elderly female who appears her stated age. She is calm pleasant with us is diffusely confused to date time location and situation. She gets a little bit irritable when questioned into much detail related to her living situation and with whom she lives. She denies ever seeing a psychiatrist in the past. She denies suicidality homicidality voices or visions. She states she rarely ever drinks. And has never used marijuana. At the present time patient meets criteria for involuntary psychiatric hospitalization under the Carias act I'll do first opinion request second opinion. Therefore she does not have capacity thus will ask for healthcare surrogate and guardian advocate we will have hospitalist consult will also have PT and OT consult will us. We need to meet with patient's family to determine placement issues. We do need for further observe patient to monitor behaviors into this evening Patient was seen today for second opinion. She was very confused, she does not know the reason she is in the hospital. She reports good mood, denies suicidal ideation, she denies visual and auditory hallucinations. She does report feeling very tired, fatigued. She does not know where she is, does not know the date. She is irritable, but no agitated, no aggressive. Tobacco Use In Past 30 Days: No Tobacco Past 30 Days Alcohol Use: Never Hospital Course Patient's hospital course was uneventful, her cognitive disabilities persisted throughout. She was overall calm and pleasant with us there is some mild episodes of dyscontrol towards late afternoon and evening. However that was controllable by staff. She is been compliant with her medication. She does deny any suicidal ideation. Does not appear to be responding to internal stimuli. At this time patient reached maximum benefit of this hospitalization. There is a bed available for today at [facility] patient be discharged today to that facility with Rx 1 month follow-up with services through that facility Results Blood Pressure 165 / 74 Vital Signs Date Time Temp Pulse Resp B/P (MAP) Pulse Ox O2 Delivery O2 Flow Rate FiO2 05/02/17 06:05 96.3 63 16 165/74 (104) 96 Laboratory Results Test 04/25/17 07:04 Cholesterol Level 170 MG/DL (120-200) HDL Cholesterol 72.8 MG/DL (40.0-60.0) Hemoglobin A1c 5.1 % (4.3-6.0) LDL Cholesterol 79 MG/DL (0-99) Triglycerides Level 90 MG/DL (42-150) Summary of Procedures None done Imaging Last Impressions Head CT 04/24/17 0000 Signed Impressions: Service Date/Time: Monday, April 24, 2017 13:58 - CONCLUSION: 1. 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 2. No acute intracranial abnormality. Norman Duarte MD Pending results at discharge: No Medications # of Antipsychotic meds at D/C: 1 Approp Antipsych med options 1 - Minimum of three failed multiple trials of monotherapy. 2 - Documented plan to taper to monotherapy due to previous use of multiple meds OR cross-taper in progress at D/C. 3 - Documentation of augmentation of Clozapine. 4 - Justification other than those listed in allowable values 1-3, document here : Discharge Discharge Date: May 02, 2017 Discharge Diagnosis: (1) DEMENTIA IN OTH DISEASES CLASSD ELSWHR W BEHAVIORAL DISTURB Diagnosis: Principal ICD Code: F02.81 - DEMENTIA IN OTH DISEASES CLASSD ELSWHR W BEHAVIORAL DISTURB (2) ALZHEIMER'S DISEASE WITH LATE ONSET Diagnosis: Principal ICD Code: G30.1 - ALZHEIMER'S DISEASE WITH LATE ONSET Pt Condition on Discharge: Stable Discharge Disposition: Discharge to SNF Discharge Instructions Diet Instructions: As Tolerated, No Restrictions Activities you can perform: Regular-No Restrictions Scheduled Appointment: [facility] Discharge Time > 30 minutes Mental Status Examination Appearance: Appropriate (for 86-year-old) Consciousness: Alert Orientation: Person Motor Activity: Other (patient seen in Karie chair unable to ascertain date) Speech: Hesitant Language: Adequate Fund of Knowledge: Inadequate Attention and Concentration: Easily Distracted Memory: Impaired Mood: Other (euthymic to mildly dysphoric) Affect: Other (decreased range and intensity) Thought Process & Associations: Disorganized Thought Content: Other (somewhat disorganized) Hallucination Type: None Delusion Type: None Suicidal Ideation: No Suicidal Plan: No Suicidal Intention: No Homicidal Ideation: No Homicidal Plan: No Homicidal Intention: No Insight: Poor Judgment: Poor Discharge/Advance Care Plan Health Problems: (1) DEMENTIA IN OTH DISEASES CLASSD ELSWHR W BEHAVIORAL DISTURB (2) ALZHEIMER'S DISEASE WITH LATE ONSET Goals to promote your health * To prevent worsening of your condition and complications * To maintain your health at the optimal level Directions to meet your goals Take your medications as prescribed Follow your dietary instruction Follow activity as directed Keep your appointments as scheduled Take your immunizations and boosters as scheduled If your symptoms worsen call your PCP, if no PCP go to Urgent Care Center or Emergency Room For 24/ questions related to your inpatient stay or results of tests pending at discharge, please contact Dr. Santi Zaragoza at Smoking is Dangerous to Your Health. Avoid second hand smoking Santi Zaragoza MD May 02, 2017 09:14
[2017-05-02 14:44] VITALS: BP 83/43; PULSE 58; RESP 17; TEMP 97.8; O2SAT 97
[2017-05-02] MEDS: QUEtiapine FUMARATE 25 MG TAB PO SCH ×2 (16:00→20:59)
[2017-05-02 21:00] VITALS: BP 102/50; PULSE 70
[2017-05-03] MEDS: LEVOTHYROXINE SODIUM 25 MCG TAB PO SCH (06:09)
[2017-05-03 06:31] VITALS: BP 122/58; PULSE 59; RESP 15; TEMP 97.4; O2SAT 97
[2017-05-03] MEDS: ASPIRIN 81 MG CHEW TAB CHEW SCH (08:19)
[2017-05-03] MEDS: BUDESONIDE-FORMOTEROL 160/4.5 MCG INHALER INH SCH (08:19)
[2017-05-03] MEDS: METOPROLOL TARTRATE 50 MG TAB PO SCH (08:19)
[2017-05-03] MEDS: LOSARTAN 25 MG TAB PO SCH (08:19)
== END 2017-05-03 15:35 | DRG 57 ==
LOC: NEPD 10:12 → NEDA 17:14 → H250 19:41
PROVIDERS: ADMIT Psychiatry & Neurology Psychiatry; ATTEND Psychiatry & Neurology Psychiatry
DX: G30.1 Alzheimer's disease with late onset (principal); F02.81 Dementia in other diseases classified elsewhere, unspecified severity, with behavioral disturbance; Z91.83 Wandering in diseases classified elsewhere; I13.0 Hypertensive heart and chronic kidney disease with heart failure and stage 1 through stage 4 chronic kidney disease, or unspecified chronic kidney disease; I50.9 Heart failure, unspecified; N18.3 Chronic kidney disease, stage 3 (moderate); D51.3 Other dietary vitamin B12 deficiency anemia; Z86.718 Personal history of other venous thrombosis and embolism; I25.10 Atherosclerotic heart disease of native coronary artery without angina pectoris; Z95.1 Presence of aortocoronary bypass graft; M17.10 Unilateral primary osteoarthritis, unspecified knee; E78.5 Hyperlipidemia, unspecified; E03.9 Hypothyroidism, unspecified; J44.9 Chronic obstructive pulmonary disease, unspecified; M48.061 Spinal stenosis, lumbar region without neurogenic claudication; M47.816 Spondylosis without myelopathy or radiculopathy, lumbar region; Z79.82 Long term (current) use of aspirin; Z66 Do not resuscitate; Z87.891 Personal history of nicotine dependence; Z91.81 History of falling
CPT/HCPCS: 70450; 80048; 80053; 80061; 80307; 81001; 82140; 82607; 82746; 83036; 84439; 84443; 85025; 86592; 87086; P9612; Q0163

== ENCOUNTER 2017-08-06 14:16 | Inpatient (IN) | END 2017-08-10 19:01 | disposition hospice, inpatient (51) | LOC: PH3 18:06 | PROVIDERS: ADMIT Family Medicine; ATTEND Family Medicine ==